=== PATIENT | female | born 1990 | race Caucasian/White ===

== ENCOUNTER 2020-08-21 18:45 | Emergency (ER) | payer OTHER ==
[~2020-08-21] VITALS: Ht 182.9 cm; Wt 99.0 kg
--- NOTE | 2020-08-21 18:58 | PHYS DOC ---
Past History Past Medical History Gastroparesis, Lennox's Past Surgical History Feeding tube General Adult HPI: HPI: ".. I got a needle stick in my Lt index finger giving meds go inmate at [facility]- at about 5:30.. (1730hrs). 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 Stick with a 23-gauge needle. Site was washed immediately. Does not know the infectious status of the inmate Campbell Luciano. Patient has past medical history of gastroparesis with G-tube, recurrent SVT post ablation, Lennox's thyroid disease,\\. Patient has had vaccination with hepatitis B and tetanus update if 2019. Pt. follows with Dr. Esvin Vera for primary. Report made with employer. No recent travel outside the [place] area. 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 Patient elects to do prophylaxis for HIV-risks discussed. Review of Systems: Review of Systems: Constitutional: Denies fever or chills Eyes: Denies change in visual acuity HENT: Denies nasal congestion or sore throat Respiratory: Denies cough or shortness of breath Cardiovascular: Denies chest pain or edema GI: Denies abdominal pain, nausea, vomiting, bloody stools or diarrhea : Denies dysuria Musculoskeletal: Denies back pain or joint pain Integument: Denies rash Complaints of needle stick Lt. index finger Neurologic: Denies headache, focal weakness or sensory changes Endocrine: Denies polyuria or polydipsia Lymphatic: Denies swollen glands Psychiatric: Denies depression or anxiety Family History: Family History: Noncontributory to presentation Current Medications: Current Meds: See nursing for home meds Allergies: Allergies: Haldol promethazine Physical Exam: PE: Constitutional: no acute distress, non-toxic appearance. [] HENT: Normocephalic, atraumatic, bilateral external ears normal, oropharynx moist, no oral exudates, nose normal. [] Eyes: PERRLA, EOMI, conjunctiva normal, no discharge. [] Neck: Normal range of motion, no tenderness, supple, no stridor. [] Cardiovascular:Heart rate regular rhythm, no murmur [] Lungs & Thorax: Bilateral breath sounds equal at apex auscultation [] Abdomen: Bowel sounds normal, soft, no tenderness, no masses, no pulsatile masses. Abdomen surgery scars, feeding tube. Skin: Warm, dry, no erythema, no rash. [] Back: No tenderness, no CVA tenderness. [] Extremities: No tenderness, no cyanosis, no clubbing, ROM intact, no edema. [] Neurologic: Alert and oriented X 3, normal motor function, normal sensory function, no focal deficits noted. [] Psychologic: Affect anxious, judgement normal, mood normal. [] EKG: EKG: [] Radiology/Procedures: Radiology/Procedures: [] Heart Score: Risk Factors: Risk Factors: DM, Current or recent (<one month) smoker, HTN, HLP, family history of CAD, obesity. Risk Scores: Score 0 - 3: 2.5% MACE over next 6 weeks - Discharge Home Score 4 - 6: 20.3% MACE over next 6 weeks - Admit for Clinical Observation Score 7 - 10: 72.7% MACE over next 6 weeks - Early Invasive Strategies Course & Med Decision Making: Course & Med Decision Making Pertinent Labs and Imaging studies reviewed. (See chart for details) Monitor needlestick site for infection. To follow-up with HIV syphilis hepatitis and baseline labs 1 month 6 months in 1 year. (Or as directed by workman comp.). Attempt to determine infectious status of the inmate. Start on Tenoforvir, and Raltesrovir as directed. Return if any concerns. Would also inform primary of injury. Impression: 1. Needle Stick 23 g. Lt.,Index ( 2nd finger) [] Dragon Disclaimer: Dragon Disclaimer: This electronic medical record was generated, in whole or in part, using a voice recognition dictation system. Departure Departure: Referrals: ESVIN VERA DO (PCP) Scripts Raltegravir Potassium (ISENTRESS) 400 Mg Tablet 1 TAB PO BID for needle stick, #60 TAB 3 Refills Prov: DHARMESH REYNOSO MD 08/21/20 Emtricitabine/Tenofovir (TRUVADA 200 MG-300 MG TABLET) 1 Each Tablet 1 TAB PO DAILY for needle stick for 30 Days, #30 TAB 0 Refills Prov: DHARMESH REYNOSO MD 08/21/20 Fidencio Disclaimer This chart was dictated in whole or in part using Voice Recognition software in a busy, high-work load, and often noisy Emergency Department environment. It may contain unintended and wholly unrecognized errors or omissions. DHARMESH REYNOSO MD Aug 21, 2020 18:58
[2020-08-21 19:00] VITALS: BP 129/56
[2020-08-21] MEDS ORDERED: EMTRICITAB/TENOFOVIR 200/300MG TABLET. PO ONE (19:30)
[2020-08-21] MEDS ORDERED: RALTEGRAVIR 400 MG TABLET. PO ONE (19:30)
[2020-08-21] MEDS ORDERED: EMTR1TAB8 PO (19:30)
[2020-08-21] MEDS ORDERED: RALT400T PO (19:30)
[2020-08-21 19:57] LABS: BASO # 0.1 x10^3/uL (0.0-0.2); BASO % 1 % (0-3); EOS # 0.1 x10^3/uL (0.0-0.7); EOS % 1 % (0-3); HEMATOCRIT 42.3 % (36.0-47.0); LYMPH # 1.7 x10^3/uL (1.0-4.8); LYMPH % 14 % (24-48); MEAN CORPUSCULAR HEMOGLOBIN 29 pg (25-35); MEAN CORPUSCULAR HGB CONC 33 g/dL (31-37); MEAN CORPUSCULAR VOLUME 88 fL (79-100); MONO # 0.6 x10^3/uL (0.0-1.1); MONO % 5 % (0-9); NEUT # 9.9 x10^3uL (1.8-7.7); NEUT % 80 % (31-73); PLATELET COUNT 176 x10^3/uL (140-400); RED BLOOD COUNT 4.82 x10^6/uL (3.50-5.40); RED CELL DISTRIBUTION WIDTH 13.4 % (11.5-14.5); WHITE BLOOD COUNT 12.4 x10^3/uL (4.0-11.0)
[2020-08-21 20:13] LABS: CALCIUM 9.3 mg/dL (8.5-10.1); CREATININE 0.9 mg/dL (0.6-1.0); GFR 73.5; POTASSIUM 3.4 mmol/L (3.5-5.1)
[2020-08-21 20:14] LABS: AMYLASE 29 U/L (25-115); LIPASE 46 U/L (73-393)
== END 2020-08-21 20:30 | disposition home or self-care (01) ==
LOC: ER 18:45
DX: S69.92XA Unspecified injury of left wrist, hand and finger(s), initial encounter (principal); W46.0XXA Contact with hypodermic needle, initial encounter; Y93.89 Activity, other specified; Y92.89 Other specified places as the place of occurrence of the external cause; Y99.8 Other external cause status
CPT/HCPCS: 36415; 80048; 82150; 83690; 85025; 86592; 86703; 86705; 86709; 86803; 87340; 99283

== ENCOUNTER 2021-06-08 22:08 | Emergency (ER) | payer OTHER ==
[~2021-06-08] VITALS: Ht 182.9 cm; Wt 95.9 kg
[~2021-06-08 22:08] MED LIST: EMTR1TAB8 PO; RALT400T PO
--- NOTE | 2021-06-08 22:10 | PHYS DOC ---
Past History Past Medical History: Other Additional Past Medical Histor: SVT, GASTROPARESIS, HASHIMOTOS Past Surgical History: Other Additional Past Surgical Histo: FEEDING TUBE Alcohol Use: Rarely General Adult HPI: HPI: ".. We were jeramy wrestling around at home... And I hurt my left shoulder... It is the same when I had repair on before.." Patient is a 30 year old female who presents with above hx and complaints left shoulder injury. This is same shoulder he had a rotator cuff tear and repair previously. Patient does have some findings of AC separation. Does have some localization of pain in the rotator cuff. Unable to raise arm continuously above her head. Is able to somewhat maintain extended positioning. Distal neurovascular intact. No other injuries reported. Normally healthy. No recent travel. No immunosuppression. Review of Systems: Review of Systems: Constitutional: Denies fever or chills Eyes: Denies change in visual acuity HENT: Denies nasal congestion or sore throat Respiratory: Denies cough or shortness of breath Cardiovascular: Denies chest pain or edema GI: Denies abdominal pain, nausea, vomiting, bloody stools or diarrhea : Denies dysuria Musculoskeletal: Complains of left shoulder injury Integument: Denies rash Neurologic: Denies headache, focal weakness or sensory changes Endocrine: Denies polyuria or polydipsia Lymphatic: Denies swollen glands Psychiatric: Denies depression or anxiety Family History: Family History: Noncontributory to presentation. Current Medications: Current Meds: See nursing for home meds Allergies: Allergies: Allergies Coded Allergies Type Severity Reaction Last Updated Verified haloperidol Allergy Unknown 08/21/20 Yes promethazine Allergy Unknown 08/21/20 Yes Physical Exam: PE: Constitutional: Well developed, well nourished, in moderate acute acute distress, non-toxic appearance. [] HENT: Normocephalic, atraumatic, bilateral external ears normal, oropharynx moist, no oral exudates, nose normal. [] Eyes: PERRLA, EOMI, conjunctiva normal, no discharge. [] Neck: Normal range of motion, no tenderness, supple, no stridor. [] Cardiovascular:Heart rate regular rhythm, no murmur [] Lungs & Thorax: Bilateral breath sounds clear to auscultation [] Abdomen: Bowel sounds normal, soft, no tenderness, no masses, no pulsatile masses. [] Skin: Warm, dry, no erythema, no rash. [] Back: No tenderness, no CVA tenderness. [] Extremities: No tenderness, no cyanosis, no clubbing, ROM intact, no edema. [] Except findings in left shoulder as per HPI Neurologic: Alert and oriented X 3, normal motor function, normal sensory function, no focal deficits noted. [] Psychologic: Affect anxious, judgement normal, mood normal. [] EKG: EKG: [] Radiology/Procedures: Radiology/Procedures: [place] [address] IMAGING REPORT Signed PATIENT: CADEN BURGER ACCOUNT: [id number] : 1990 LOCATION: ER AGE: 30 SEX: F EXAM STATUS: REG ER ORD. PHYSICIAN: DHRAMESH REYNOSO MD REASON: LEFT SHOULDER PAIN PROCEDURE: CHEST AP ONLY EXAMINATION: XR CHEST 1V CLINICAL HISTORY: Chest/shoulder pain EXAM DATE/TIME: 06/08/2021 10:59 PM COMPARISON: None FINDINGS: Lines, Tubes, and Devices: Implantable loop recorder projected over the medial left hemithorax. Cardiomediastinal Silhouette: Within normal limits. Lungs and Pleura: No evidence of focal airspace consolidation, pleural effusion, or pneumothorax. Bones and Soft Tissues: No acute osseous abnormality. IMPRESSION: No evidence of acute cardiopulmonary abnormality. Electronically signed by: Robel Alexander DO (06/08/2021 11:19 PM) [facility] DICTATED AND SIGNED BY: ROBEL ALEXANDER DO DATE: 06/08/21 5847 CC: ESVIN VERA DO; DHARMESH REYNOSO MD ~MTH0 0 [][address] [address] IMAGING REPORT Signed PATIENT: CADEN BURGER ACCOUNT: [id number] : 1990 LOCATION: ER AGE: 30 SEX: F EXAM STATUS: REG ER ORD. PHYSICIAN: DHARMESH REYNOSO MD REASON: LEFT SHOULDER PAIN.HX ROTATOR CUFF TEAR PROCEDURE: SHOULDER 2+V LEFT EXAMINATION: XR SHOULDER_LEFT 2+ VIEWS CLINICAL HISTORY: Left shoulder pain, history of rotator cuff tear TECHNIQUE: XR SHOULDER_LEFT 2+ VIEWS COMPARISON: Chest radiographs same day and 01/27/2021 FINDINGS/ IMPRESSION: Glenohumeral joint alignment maintained. Widening of the left acromioclavicular joint, similar to comparison chest radiographs and possibly postsurgical. No acute fracture. Electronically signed by: Robel Alexander DO (06/08/2021 11:19 PM) [facility] DI[facility]ATED AND SIGNED BY: ROBEL ALEXANDER DO DATE: 06/08/212316 CC: ESVIN VERA DO; DHARMESH REYNOSO MD ~MTH0 0 Heart Score: C/O Chest Pain: N/A Risk Factors: Risk Factors: DM, Current or recent (<one month) smoker, HTN, HLP, family history of CAD, obesity. Risk Scores: Score 0 - 3: 2.5% MACE over next 6 weeks - Discharge Home Score 4 - 6: 20.3% MACE over next 6 weeks - Admit for Clinical Observation Score 7 - 10: 72.7% MACE over next 6 weeks - Early Invasive Strategies Course & Med Decision Making: Course & Med Decision Making Pertinent Labs and Imaging studies reviewed. (See chart for details) Patient use ice packs as needed. Wear sling. Do passive range of motion 4 times a day. Follow-up with orthopedics. If unable to follow-up with orthopedics consider following up at [facility] [phone]. Return if any concerns. Tylenol and ibuprofen for pain. . Impression: 1. Rotator Cuff Injury left shoulder 2. AC injury left shoulder [] Dragon Disclaimer: Fidencio Disclaimer: This electronic medical record was generated, in whole or in part, using a voice recognition dictation system. Departure Departure: Referrals: ESVIN VERA DO (PCP) Fidencio Disclaimer This chart was dictated in whole or in part using Voice Recognition software in a busy, high-work load, and often noisy Emergency Department environment. It may contain unintended and wholly unrecognized errors or omissions. DHARMESH REYNOSO MD Jun 08, 2021 22:10
[2021-06-08] MEDS ORDERED: HYDROcodon/IBUPROFEN 7.5/200MG 1 TAB TABLET PO ONE (23:00)
[2021-06-08 23:14] LABS: BARBITURATES NEG (NEG); BENZODIAZEPINES NEG (NEG); CANNABINOIDS NEG (NEG); COCAINE NEG (NEG); METHADONE NEG (NEG); OPIATES NEG (NEG); PHENCYCLIDINE NEG (NEG)
[2021-06-08 23:16] LABS: AMPHETAMINE/METHAMPHETAMINE NEG (NEG)
[2021-06-08 23:18] LABS: BACTERIA,URINE 0 /HPF (0-FEW); BILIRUBIN,URINE NEG (NEG); CLARITY,URINE CLOUDY; COLOR,URINE YELLOW; GLUCOSE,URINE NEG (NEG); NITRITE,URINE NEG (NEG); RBC,URINE 0 /HPF (0-2); SQUAMOUS EPITHELIAL CELL,UR FEW /LPF; UROBILINOGEN,URINE 0.2 mg/dL (0.2 mg/dL)
[2021-06-08 23:19] LABS: AMORPHOUS SEDIMENT,UR PRESENT /HPF
--- NOTE | 2021-06-08 23:21 | RAD ---
EXAMINATION: XR CHEST 1V CLINICAL HISTORY: Chest/shoulder pain EXAM DATE/TIME: 06/08/2021 10:59 PM COMPARISON: None FINDINGS: Lines, Tubes, and Devices: Implantable loop recorder projected over the medial left hemithorax. Cardiomediastinal Silhouette: Within normal limits. Lungs and Pleura: No evidence of focal airspace consolidation, pleural effusion, or pneumothorax. Bones and Soft Tissues: No acute osseous abnormality. IMPRESSION: No evidence of acute cardiopulmonary abnormality. Electronically signed by: Robel Reyes DO (06/08/2021 11:19 PM) KJ
--- NOTE | 2021-06-08 23:21 | RAD ---
EXAMINATION: XR SHOULDER_LEFT 2+ VIEWS CLINICAL HISTORY: Left shoulder pain, history of rotator cuff tear TECHNIQUE: XR SHOULDER_LEFT 2+ VIEWS COMPARISON: Chest radiographs same day and 01/27/2021 FINDINGS/ IMPRESSION: Glenohumeral joint alignment maintained. Widening of the left acromioclavicular joint, similar to com parison chest radiographs and possibly postsurgical. No acute fracture. Electronically signed by: Robel Reyes DO (06/08/2021 11:19 PM) KJ
[2021-06-08] MEDS ORDERED: ONDANSETRON ODT 4 MG TAB.RAPDIS ONE (23:31)
[2021-06-08] MEDS ORDERED: ONDANSETRON ODT 4 MG TAB.RAPDIS PO ONE (23:45)
[2021-06-08 23:56] VITALS: BP 128/70
[2021-06-09] MEDS ORDERED: KETOROLAC 60 MG/2 ML VIAL. IM ONE
== END 2021-06-08 23:56 | disposition home or self-care (01) ==
LOC: ER 22:08
DX: S46.012A Strain of muscle(s) and tendon(s) of the rotator cuff of left shoulder, initial encounter (principal); S49.82XA Other specified injuries of left shoulder and upper arm, initial encounter; X58.XXXA Exposure to other specified factors, initial encounter; Y93.89 Activity, other specified; Y92.89 Other specified places as the place of occurrence of the external cause; Y99.8 Other external cause status
CPT/HCPCS: 29240; 36415; 71045; 73030; 80307; 81001; 81025; 96372; 99284; Q0162